=== PATIENT | female | born 1940 | race Caucasian/White ===

== ENCOUNTER 2016-10-14 07:51 | Inpatient (IN) | payer MEDICARE ==
[~2016-10-14] VITALS: Ht 157.5 cm; Wt 69.8 kg
[2016-10-14] VITALS (9 sets, daily range): BP systolic 137–214; BP diastolic 64–89; PULSE 49–73; RESP 16–20; TEMP 97.1–97.9; O2SAT 92–99
[~2016-10-14 07:51] MED LIST: AMLO2.5T PO; ASPI-99 PO; FISH100020 PO; FURO20 PO; LEVO50TA51 PO; LOSA50TA PO; METO25 PO; OMEP20TA PO
--- NOTE | 2016-10-14 08:30 | PD ---
HPI Chief Complaint: Abnormal blood work Time Seen by Provider: 08:12 Travel History International Travel<30 days: No Contact w/Intl Traveler<30days: No Traveled to known affect area: No History of Present Illness HPI 76yo F with PMH of hypothyroidism, HTN presents to the ED after receiving a phone call from PMD Dr. Rolle's office for sodium of 113. Pt had blood work drawn yesterday and has been having work up for dizziness as outpatient. Pt has been feeling dizzy with unstable gait and fell 4 days ago. Pt had MRI brain at [place] yesterday. States she has not been eating well and feels generalized fatigue. Denies any headache, fever, cough, chest pain, sob, n/v, abdominal pain, diarrhea, focal weakness or numbness. States urine has been having a strong smell. PFSH Past Medical History Anxiety: Yes Cancer: No Cardiovascular Problems: No High Cholesterol: Yes Diabetes: No Diminished Hearing: No Endocrine: Yes Gastrointestinal Disorders: Yes (GERD) Genitourinary: No Hepatitis: No Hiatal Hernia: No Hypertension: Yes Immune Disorder: No Medical other: No Musculoskeletal: No Neurologic: No Psychiatric: No Reproductive: No Respiratory: No Immunizations Current: No Thyroid Disease: Yes Menopausal: Yes Past Surgical History AICD: No Body Medical Devices: NONE Cardiac Surgery: No Ear Surgery: No Endocrine Surgery: No Eye Surgery: No Genitourinary Surgery: Yes (CYSTOSCOPIES FOR BLADDER STONE ) Joint Replacement: No Neurologic Surgery: No Oral Surgery: Yes (wisDom teeth) Pacemaker: No Thoracic Surgery: No Other Surgery: Yes Social History Alcohol Use: No Tobacco Use: No Substance Use: No Allergies-Medications (Allergen,Severity, Reaction): Coded Allergies: Iodine (Verified Allergy, Mild, Irritation, 10/14/16) TOPICAL CAUSES LOCAL IRRITATION Latex (Unverified Allergy, Mild, LOCAL IRRITATION, 10/14/16) Sulfa (Verified Allergy, Mild, Swelling, 10/14/16) Pravastatin (Verified Adverse Reaction, Severe, NAUSEA, 10/14/16) ALL STATINS SEVERE NAUSEA, DIARRHEA Reported Meds & Prescriptions Reported Meds & Active Scripts Active Reported Metformin (Metformin HCl) 500 Mg Tab 500 Mg PO DAILY With a meal Aspirin 81 Mg Chew 81 Mg CHEW DAILY Furosemide 20 Mg Tab 20 Mg PO DAILY Levothyroxine (Levothyroxine Sodium) 50 Mcg Tab 50 Mcg PO DAILY Losartan (Losartan Potassium) 50 Mg Tab 50 Mg PO BID Metoprolol Tartrate 25 Mg Tab 25 Mg PO BID [place]-3 Fish Oil/Vitamin (Fish Oil-Cholecalciferol) 1,000-1,000 Mg Cap 1 Cap PO DAILY Omeprazole 20 Mg Tab 20 Mg PO DAILY Amlodipine (Amlodipine Besylate) 2.5 Mg Tab 2.5 Mg PO BID Review of Systems Except as stated in HPI: all other systems reviewed are Neg Physical Exam Narrative GENERAL: 76yo F not in distress. SKIN: Warm and dry. HEAD: Atraumatic. Normocephalic. Old ecchymoses left face and periorbital region. EYES: Pupils equal and round. No scleral icterus. No injection or drainage. ENT: No nasal bleeding or discharge. Mucous membranes pink and moist. NECK: Trachea midline. No JVD. CARDIOVASCULAR: Regular rate and rhythm. No murmur appreciated. RESPIRATORY: No accessory muscle use. Clear to auscultation. Breath sounds equal bilaterally. GASTROINTESTINAL: Abdomen soft, non-tender, nondistended.No rebound tenderness or guarding. MUSCULOSKELETAL: No obvious deformities. No clubbing. No cyanosis. Trace lower ext edema. NEUROLOGICAL: Awake and alert. No obvious cranial nerve deficits. Motor grossly within normal limits. Normal speech. PSYCHIATRIC: Appropriate mood and affect; insight and judgment normal. Data Data Last Documented VS Vital Signs Date Time Temp Pulse Resp B/P Pulse Ox O2 Delivery O2 Flow Rate FiO2 10/14/16 09:26 97.9 49 17 144/64 96 Room Air Orders Complete Blood Count With Diff (10/14/16 08:25) Basic Metabolic Panel (Bmp) (10/14/16 08:25) Osmolality,Serum (10/14/16 08:25) Urinalysis - C+S If Indicated (10/14/16 08:25) Electrocardiogram (10/14/16 ) Thyroid Stimulating Hormone (10/14/16 08:25) Sodium Chlor 0.9% 1000 Ml Inj (Ns 1000 M (10/14/16 10:30) Osmolality, Urine (10/14/16 10:33) Specimen To Be Collected PRN (10/14/16 10:33) Sodium, Random Urine (10/14/16 10:33) Chloride, Random Urine (10/14/16 10:33) Admit Order (Ed Use Only) (10/14/16 10:36) Admit To Inpatient (10/14/16 ) Scd Bilateral/Knee High [email or web address].[email or web address] (10/14/16 10:35) Vital Signs (Adult) LUDWIG.Q4H (10/14/16 10:35) Licensed Funeral Director / Telemetry LUDWIG.Q8H (10/14/16 10:35) Inpatient Certification (10/14/16 ) Diet Heart Healthy (10/14/16 Lunch) Activity Bed Rest With Brp (10/14/16 10:35) Sodium (Na) (10/14/16 12:00) Labs Laboratory Tests Test 10/14/16 08:35 White Blood Count 12.8 TH/MM3 Red Blood Count 3.43 MIL/MM3 Hemoglobin 10.5 GM/DL Hematocrit 29.2 % Mean Corpuscular Volume 84.9 FL Mean Corpuscular Hemoglobin 30.5 PG Mean Corpuscular Hemoglobin 35.9 % Concent Red Cell Distribution Width 13.3 % Platelet Count 326 TH/MM3 Mean Platelet Volume 8.0 FL Neutrophils (%) (Auto) 75.1 % Lymphocytes (%) (Auto) 16.5 % Monocytes (%) (Auto) 6.8 % Eosinophils (%) (Auto) 1.3 % Basophils (%) (Auto) 0.3 % Neutrophils # (Auto) 9.7 TH/MM3 Lymphocytes # (Auto) 2.1 TH/MM3 Monocytes # (Auto) 0.9 TH/MM3 Eosinophils # (Auto) 0.2 TH/MM3 Basophils # (Auto) 0.0 TH/MM3 CBC Comment DIFF FINAL Differential Comment Sodium Level 110 MEQ/L Potassium Level 3.9 MEQ/L Chloride Level 74 MEQ/L Carbon Dioxide Level 23.9 MEQ/L Anion Gap 12 MEQ/L Blood Urea Nitrogen 8 MG/DL Creatinine 0.51 MG/DL Estimat Glomerular Filtration 117 ML/MIN Rate Random Glucose 109 MG/DL Serum Osmolality 228 MOSM/KG Calcium Level 8.1 MG/DL Thyroid Stimulating Hormone 2.790 uIU/ML 3rd Gen [facility] Medical Decision Making Medical Screen Exam Complete: Yes Emergency Medical Condition: Yes Interpretation(s) EKG: Sinus bradycardia at 56bpm. Normal axis. TWI III. No ST segment elevation or depression. Differential Diagnosis Hyponatremia vs. other electrolyte abnormality vs. hypothyroidism vs. UTI vs. arrhythmia vs. dehydration Narrative Course 76yo F with hyponatremia sent here from PMD's office for low sodium. Pt has been having URI symptoms and feeling dizzy. Repeat Na today is 110. TSH is normal. Serum osmolality is low at 228. Mild leukocytosis at 12.8. H/H low at 10.5/29.2. Pt given NS IVF. UA and urine osmolality still pending. Pt had MRI yesterday but I was not able to see results. Discussed with Dr. Buck and accepted. BP elevated but pt states she just took her morning BP meds so will continue to monitor. UA pending. Diagnosis Primary Impression: Hyponatremia Admitting Information Admitting Physician Requests: it Donna Addison DO Oct 14, 2016 08:30
[2016-10-14 09:23] LABS: AUTOMATED NEUTROPHIL # 9.7 TH/MM3 (1.8-7.7); BASOPHIL % 0.3 % (0.0-2.0); EOSINOPHIL # 0.2 TH/MM3 (0-0.4); EOSINOPHIL % 1.3 % (0.0-4.0); HEMATOCRIT 29.2 % (35.0-46.0); HEMO FLAGS DIFF FINAL; LYMPH % 16.5 % (9.0-44.0); LYMPHOCYTE # 2.1 TH/MM3 (1.0-4.8); MEAN CELL VOLUME 84.9 FL (80.0-100.0); MEAN CORPUSCULAR HEMOGLOBIN 30.5 PG (27.0-34.0); MEAN CORPUSCULAR HGB CONC 35.9 % (32.0-36.0); MONO % 6.8 % (0.0-8.0); NEUT % 75.1 % (16.0-70.0); PLATELET COUNT 326 TH/MM3 (150-450); RED BLOOD COUNT 3.43 MIL/MM3 (4.00-5.30); RED CELL DISTRIBUTION WIDTH 13.3 % (11.6-17.2); WHITE BLOOD COUNT 12.8 TH/MM3 (4.0-11.0)
[2016-10-14 10:04] LABS: BICARBONATE 23.9 MEQ/L (21.0-32.0)
[2016-10-14 10:05] LABS: POTASSIUM 3.9 MEQ/L (3.5-5.1)
[2016-10-14] MEDS ORDERED: SODIUM CHLOR 0.9% 1000 ML INJ 1,000 ML IV ONE (10:30)
--- NOTE | 2016-10-14 12:22 | HHI.HP ---
HPI Service [facility] Hospitalists Primary Care Physician Marco Rolle MD Admission Diagnosis Hyponatremia Chief Complaint: Dizziness Travel History International Travel<30 Days: No Contact w/Intl Traveler <30 Da: No Traveled to Known Affected Are: No History of Present Illness Mrs. Stevens is a pleasant 76 y/o female with HTN, hyperlipidemia, diabetes and hypothyroidism. Pt presented to the ED at [facility] on 10/14/16 with dizziness and hyponatremia. Two weeks ago pt started having a cough and congestion and she went to see her PCP the following week and was treated by her PCP with a Z-pack and cough medication with codeine. She reports that she had less congestion but still had some cough and congestion and post-nasal drip. She states that she is still having a lot of mucous production. No reported fever or chills with the sinus and congestion. Pt then she states that she started having dizziness and difficulty ambulating 6 days ago. She fell 5 days ago while bending over and lost her balance and has some bruising on the left side of her face. She denies any LOC. Pt had a very poor appetite last week and was not eating much. She has not had much urine output. She states that she has been taking Lasix 20mg daily for years. It is prescribed as an outpt on an as needed basis per the records. She took two Lasix tablets yesterday to try to urinate because she had not been urinating much. She states that the dizziness is worse when she stands up. Pt has had some diarrhea that began last week, having one loose BM per day. reports that the diarrhea was quite profuse. But she reports that she has not had any diarrhea for the last 1-2 days. Seemed that the diarrhea stopped after she completed the Z-pack. Pts reports that she almost fell again yesterday. They went to see Dr. Rolle yesterday and was sent for blood work and an MRI of the brain. The pts labs resulted with a Na+ level of 113 and was sent to the ER. Review of Systems Constitutional: COMPLAINS OF: Dizziness, DENIES: Fever, Chills Eyes: DENIES: Vision loss Ears, nose, mouth, throat: COMPLAINS OF: Nasal discharge, Running Nose Respiratory: COMPLAINS OF: Cough, Wheezing, DENIES: Shortness of breath Cardiovascular: DENIES: Chest pain, Lower Extremity Edema Gastrointestinal: COMPLAINS OF: Diarrhea, DENIES: Abdominal pain, Nausea, Vomiting Genitourinary: DENIES: Dysuria Musculoskeletal: DENIES: Back pain, Neck pain Integumentary: DENIES: Rash Hematologic/lymphatic: DENIES: Bruising Neurologic: COMPLAINS OF: Abnormal gait, Poor Balance, DENIES: Headache, Paresthesias, Seizures, Speech Problems Psychiatric: DENIES: Confusion Past Family Social History Past Medical History Hypertension Hyperlipidemia GERD Hypothyroidism Vitamin D deficiency Type 2 diabetes mellitus, HgA1C was 6.5 on 08-05-16 Chronic constipation Diverticulosis Pulmonary nodules, CT scan of the thorax on 09-29-08 that showed a small 6mm nodule in the left base laterally and two smaller nodules in the right mid lung. Her last CT thorax on 03-28-11 showed stable findings for 2 1/2 years and it was felt this was a benign process. Fatty liver Anxiety Osteopenia Carotid artery disease, carotid ultrasound on 08-22-14 showed around a 50% stenosis of the right ICA. A carotid ultrasound on 05-08-16 showed moderate (50-69%) stenosis of the right ICA and mild (<50%) stenosis of the left ICA. Past Surgical History Cystoscopy for nephrolithiasis Reported Medications Metformin 500 Mg PO DAILY Aspirin 81 Mg CHEW DAILY Furosemide 20 Mg PO DAILY PRN Levothyroxine 50 Mcg PO DAILY Losartan 50 Mg PO BID Metoprolol Tartrate 25 Mg PO BID [place]-3 Fish Oil/Vitamin1,000 Mg Cap 1 Cap PO DAILY Omeprazole 20 Mg PO DAILY Amlodipine 2.5 Mg PO BID Allergies: Coded Allergies: Iodine (Verified Allergy, Mild, Irritation, 10/14/16) TOPICAL CAUSES LOCAL IRRITATION Latex (Unverified Allergy, Mild, LOCAL IRRITATION, 10/14/16) Sulfa (Verified Allergy, Mild, Swelling, 10/14/16) Pravastatin (Verified Adverse Reaction, Severe, NAUSEA, 10/14/16) ALL STATINS SEVERE NAUSEA, DIARRHEA Family History Noncontributory Social History Denies any alcohol, tobacco or illicit drug use Pt lives locally with her Physical Exam Vital Signs Vital Signs Date Time Temp Pulse Resp B/P Pulse Ox O2 Delivery O2 Flow Rate FiO2 10/14/16 09:26 97.9 49 17 144/64 96 Room Air 10/14/16 07:52 97.6 65 17 99 Room Air Physical Exam GENERAL: This is a well-nourished, well-developed patient, in no apparent distress. HEENT: Atraumatic. Normocephalic. No temporal or scalp tenderness. No scleral icterus. Airway patent. NECK: Trachea midline, supple, nontender. CARDIO: Regular. RESP: Coarse breath sounds and wheeze bilaterally. ABD: +BS, soft, non-tender, nondistended. EXT: Extremities without clubbing, cyanosis, or edema. NEURO: Awake and alert. Motor and sensory grossly within normal limits. Normal speech. Laboratory Laboratory Tests Test 10/14/16 08:35 White Blood Count 12.8 Red Blood Count 3.43 Hemoglobin 10.5 Hematocrit 29.2 Mean Corpuscular Volume 84.9 Mean Corpuscular Hemoglobin 30.5 Mean Corpuscular Hemoglobin 35.9 Concent Red Cell Distribution Width 13.3 Platelet Count 326 Mean Platelet Volume 8.0 Neutrophils (%) (Auto) 75.1 Lymphocytes (%) (Auto) 16.5 Monocytes (%) (Auto) 6.8 Eosinophils (%) (Auto) 1.3 Basophils (%) (Auto) 0.3 Neutrophils # (Auto) 9.7 Lymphocytes # (Auto) 2.1 Monocytes # (Auto) 0.9 Eosinophils # (Auto) 0.2 Basophils # (Auto) 0.0 CBC Comment DIFF FINAL Differential Comment Sodium Level 110 Potassium Level 3.9 Chloride Level 74 Carbon Dioxide Level 23.9 Anion Gap 12 Blood Urea Nitrogen 8 Creatinine 0.51 Estimat Glomerular Filtration 117 Rate Random Glucose 109 Serum Osmolality 228 Calcium Level 8.1 Thyroid Stimulating Hormone 2.790 3rd Gen Result Diagram: 10/14/16 0835 10/14/16 0835 Septic Shock Reassessment Heart: Regular rate and rhythm Lungs: Course Skin: Warm Peripheral Pulses: Bounding Right Radial Bounding Left Radial Bounding Right Popliteal Bounding Left Popliteal Bounding Right Dorsalis Pedis Bounding Left Dorsalis Pedis Bounding Right Posterior Tibial Bounding Left Posterior Tibial Capillary Refill: <2 seconds Assessment and Plan Problem List: (1) Hyponatremia Status: Acute Plan: - Pt admitted with dizziness, falls, weakness and had recently been ill with a viral URI and had been on antibiotics which seemed to have caused some previous diarrhea, poor po intake and had also been taking Lasix daily and yesterday took two Lasix tablets because she was not urinating well at home. - Pts outpt labs revealed a Na+ of 113 and repeat labs today noted Na+ 110 - Pt was given NS x one bag in the ER - We will repeat serial Na+ levels and await repeat labs at 12:00 today to determine continued IVF, to avoid overcorrection - Encourage oral intake - PT evaluation tomorrow - Hold Lasix - Monitor labs and clinical status closely (2) HTN (hypertension) Status: Acute Plan: - Pts BP is quite high at admission in the ER. - She states that she took her morning meds this morning - Resume home meds - Clonidine PRN - Vasotec PRN (3) URI with cough and congestion Status: Acute Plan: - CXR - Duonebs Q6H and Q2H PRN - Claritin - [place] nasal spray (4) Diabetes Status: Chronic Plan: - Hold Metformin - NovoLog SSI (5) Hypothyroidism Status: Chronic Plan: - Cont. home meds (6) Hyperlipidemia Status: Acute Assessment and Plan Patient examined. Assessment and plan formulated with Flaca Esposito PA-C. I agree with the above. viral sinus and bronchitis. has been on abx. then alot of diarrhea and poor po intake plus pt using more diuretics. became dehydrated and severely hyponatremic. dizzy/off balance and falls with left periorbital ecchymosis. Na now 110. r/o siadh. slow correction of Na and monitor frequently. nebs and claritin. cxr pending. PT eval. oob with assist. Physician Certification 2 Midnight Certification Type: Admission for Inpatient Services Order for Inpatient Services The services are ordered in accordance with Medicare regulations or non- Medicare payer requirements, as applicable. In the case of services not specified as inpatient-only, they are appropriately provided as inpatient services in accordance with the 2-midnight benchmark. Estimated LOS (days): 3 3 days is the estimated time the patient will need to remain in the hospital, assuming treatment plan goals are met and no additional complications. Post-Hospital Plan: Not yet determined Problem Qualifiers (1) Diabetes: Flaca Esposito Oct 14, 2016 12:22 Warren Buck MD Oct 14, 2016 18:22
[2016-10-14] MEDS ORDERED: METO25TA3 PO (12:26)
[2016-10-14] MEDS ORDERED: LOSA50TA PO (12:26)
[2016-10-14] MEDS ORDERED: ASPI81CH CHEW (12:26)
[2016-10-14] MEDS ORDERED: OMEGCAP PO (12:26)
[2016-10-14] MEDS ORDERED: FURO20TA PO (12:26)
[2016-10-14] MEDS ORDERED: AMLO2.5T PO (12:26)
[2016-10-14] MEDS ORDERED: OMEP20TA PO (12:26)
[2016-10-14] MEDS ORDERED: LEVO50TA4 PO (12:26)
[2016-10-14] MEDS ORDERED: METF500T PO (12:38)
[2016-10-14] MEDS ORDERED: RESP: ALBUTEROL 2.5 MG/IPRATROPIUM 0.5 MG NEB (PRN) NEB (12:45)
[2016-10-14] MEDS ORDERED: ENALAPRILAT 1.25 MG/ML VIAL IV PUSH PRN (12:45)
[2016-10-14] MEDS ORDERED: SODIUM CHLORIDE 0.65% NASAL SPRAY 45 ML BTL EACH NARE PRN (12:45)
[2016-10-14] MEDS ORDERED: PILL SPLITTER OTHER PRN (13:15)
[2016-10-14] MEDS: LORATADINE 10 MG TAB PO SCH (13:24)
[2016-10-14] MEDS ORDERED: SODIUM CHLOR 0.9% 1000 ML INJ 1,000 ML IV SCH (14:00)
--- NOTE | 2016-10-14 14:17 | RADRPT ---
EXAM DATE/TIME: 10/14/2016 13:17 [facility] COMPARISON: No previous studies available for comparison. INDICATIONS : Cough. MEDICAL HISTORY : None. SURGICAL HISTORY : None. ENCOUNTER: Initial ACUITY: 1 day PAIN SCORE: 0/10 LOCATION: Bilateral chest FINDINGS: A single AP erect portable view of the chest was obtained and demonstrates coarse streaky interstitia l opacities in both lungs greatest at the lung bases. There is no focal consolidation or effusion. Th e heart size is at the upper limits of normal. Atherosclerotic changes are present in the aorta. The bony thorax is intact. There are multiple overlying electrocardiogram leads. CONCLUSION: Streaky, coarse interstitial opacity in both lungs. The chronicity of the findings is not known for certain but these have a more chronic appearance and likely represent scarring and/or fibrosis. Pulmonary edema is less likely. Ramon Quintanilla MD on October 14, 2016 at 14:14 Board Certified Radiologist. This report was verified electronically.
[2016-10-14] MEDS ORDERED: RESP: ALBUTEROL 2.5 MG/IPRATROPIUM 0.5 MG NEB (SCH) NEB (16:00)
[2016-10-14] MEDS: INSULIN ASPART SUPPLEMENTAL SCALE SQ SCH ×2 (16:00→21:14)
[2016-10-14] MEDS: LOSARTAN 50 MG TAB PO SCH (20:26)
[2016-10-14] MEDS: METOPROLOL TARTRATE 25 MG TAB PO SCH (20:26)
[2016-10-14] MEDS: amLODIPine BESYLATE 5 MG TAB PO SCH (20:28)
[2016-10-14] MEDS: RESP: ALBUTEROL 2.5 MG/IPRATROPIUM 0.5 MG NEB (SCH) NEB (20:35)
[2016-10-14] MEDS ORDERED: SODIUM CHLORIDE 1 GRAM TAB PO ONE (22:00)
[2016-10-14] MEDS ORDERED: 3% SALINE INJ 250 ML IV ONE (22:00)
[2016-10-15] VITALS (8 sets, daily range): BP systolic 148–173; BP diastolic 63–74; PULSE 61–85; RESP 16–20; TEMP 96.5–98; O2SAT 91–94
[2016-10-15 00:24] LABS: BACTERIA, URINE RARE /hpf; BLOOD, URINE NEG (NEG); GLUCOSE,URINE TRACE mg/dL (NEG); KETONE, URINE NEG (NEG); MUCUS URINE FEW /lpf (OCC); NITRITE,URINE NEG (NEG); PH, URINE 6.5 (5.0-8.5); SQUAMOUS EPITHELIAL CELL URINE <1 /hpf (0-5); URINE COLOR YELLOW (YELLW/STRAW)
[2016-10-15 00:27] LABS: COMMENT (UR) CULT NOT INDICATED; CULTURE IF INDICATED CULT NOT INDICATED
[2016-10-15] MEDS: LEVOTHYROXINE SODIUM 50 MCG TAB PO SCH (05:33)
[2016-10-15] MEDS: INSULIN ASPART SUPPLEMENTAL SCALE SQ SCH ×4 (05:34→21:37)
[2016-10-15] MEDS: RESP: ALBUTEROL 2.5 MG/IPRATROPIUM 0.5 MG NEB (SCH) NEB ×4 (07:32→19:41)
[2016-10-15] MEDS: METOPROLOL TARTRATE 25 MG TAB PO SCH ×2 (08:49→21:27)
[2016-10-15] MEDS: LOSARTAN 50 MG TAB PO SCH ×2 (08:49→21:26)
[2016-10-15] MEDS: PANTOPRAZOLE SOD 20 MG DELAYED RELEASE TAB PO SCH (08:49)
[2016-10-15] MEDS: SODIUM CHLORIDE 1 GRAM TAB PO SCH ×2 (08:49→21:28)
[2016-10-15] MEDS: ASPIRIN 81 MG CHEW TAB CHEW SCH (08:49)
[2016-10-15] MEDS: LORATADINE 10 MG TAB PO SCH (08:50)
[2016-10-15] MEDS: amLODIPine BESYLATE 5 MG TAB PO SCH ×2 (08:50→21:27)
--- NOTE | 2016-10-15 09:03 | HHI.PR ---
Subjective Remarks lying in bed. trying to eat. Objective Vitals heart reg lung course bs abd s/nt ext no edema Vital Signs Date Time Temp Pulse Resp B/P Pulse Ox O2 Delivery O2 Flow Rate FiO2 10/15/16 08:00 96.9 68 18 156/64 91 10/15/16 04:00 97.8 61 16 148/66 93 10/15/16 00:00 98.0 63 16 165/63 94 10/14/16 20:43 67 10/14/16 20:00 97.1 73 16 169/75 92 10/14/16 15:30 97.5 63 20 144/89 93 10/14/16 15:06 137/88 10/14/16 15:00 137/88 10/14/16 12:40 65 214/85 95 Room Air 10/14/16 09:26 97.9 49 17 144/64 96 Room Air 10/14/16 10/14/16 10/15/16 15:00 23:00 07:00 Intake Total 200 ml 410 ml Output Total 1000 ml Balance 200 ml -590 ml Intake Oral 200 ml 150 ml IV Total 260 ml Output Urine Total 1000 ml # Voids 1 # Bowel Movements 0 Result Diagram: 10/14/16 0835 10/15/16 0448 A/P Problem List: (1) Hyponatremia Status: Acute Plan: - Pt admitted with dizziness, falls, weakness and had recently been ill with a viral URI and had been on antibiotics which seemed to have caused some previous diarrhea, poor po intake and had also been taking Lasix daily and yesterday took two Lasix tablets because she was not urinating well at home. - Pts outpt labs revealed a Na+ of 113 and repeat labs today noted Na+ 110 gentle 3% saline. follow na level closely today in and out cath overnight. 1000ml urine retention regular diet. nebulizer rx for cough/bronchospasm PT eval dvt prophylaxis (2) HTN (hypertension) Status: Acute Plan: -elevated htn cont scheduled and prn control (3) URI with cough and congestion Status: Acute Plan: - CXR - Duonebs Q6H and Q2H PRN - Claritin - [place] nasal spray (4) Diabetes Status: Chronic Plan: - Hold Metformin - NovoLog SSI (5) Hypothyroidism Status: Chronic Plan: - Cont. home meds (6) Hyperlipidemia Status: Acute Problem Qualifiers (1) Diabetes: Warren Buck MD Oct 15, 2016 09:03
[2016-10-15 12:17] LABS: BICARBONATE 22.4 MEQ/L (21.0-32.0); POTASSIUM 3.1 MEQ/L (3.5-5.1)
[2016-10-15] MEDS ORDERED: POTASSIUM CHLORIDE 20 MEQ CONTROLLED RELEASE TAB PO ONE (12:30)
[2016-10-15] MEDS ORDERED: 3% SALINE INJ 250 ML IV ONE (13:00)
[2016-10-15] MEDS: cloNIDine HCL 0.1 MG TAB PO PRN (19:00)
[2016-10-15] MEDS ORDERED: POTASSIUM CHLORIDE 20 MEQ CONTROLLED RELEASE TAB PO SCH (21:00)
--- NOTE | 2016-10-15 23:11 | EKG ---
Date Performed: 10/14/2016 Time Performed: 10:57:11 PTAGE: 76 years EKG: SINUS BRADYCARDIA MINIMAL ST DEPRESSION ABNORMAL ECG PREVIOUS TRACING : 10/14/2016 10.56 DOCTOR: Kristopher Ulrich Interpretating Date/Time 10/15/2016 23:10:30
[2016-10-16] VITALS (12 sets, daily range): BP systolic 119–180; BP diastolic 60–81; PULSE 65–89; RESP 16–20; TEMP 95.6–97.8; O2SAT 95–98
[2016-10-16] MEDS: cloNIDine HCL 0.1 MG TAB PO PRN (03:35)
[2016-10-16] MEDS: LEVOTHYROXINE SODIUM 50 MCG TAB PO SCH (05:22)
[2016-10-16] MEDS: INSULIN ASPART SUPPLEMENTAL SCALE SQ SCH ×4 (05:24→21:40)
[2016-10-16 07:22] LABS: AUTOMATED NEUTROPHIL # 8.2 TH/MM3 (1.8-7.7); BASOPHIL % 0.4 % (0.0-2.0); EOSINOPHIL # 0.1 TH/MM3 (0-0.4); HEMO FLAGS DIFF FINAL; LYMPHOCYTE # 1.5 TH/MM3 (1.0-4.8); MEAN CORPUSCULAR HEMOGLOBIN 30.8 PG (27.0-34.0); MONO % 8.1 % (0.0-8.0); NEUT % 76.5 % (16.0-70.0); PLATELET COUNT 232 TH/MM3 (150-450); RED BLOOD COUNT 3.07 MIL/MM3 (4.00-5.30); RED CELL DISTRIBUTION WIDTH 13.8 % (11.6-17.2); WHITE BLOOD COUNT 10.7 TH/MM3 (4.0-11.0)
[2016-10-16 07:47] LABS: BICARBONATE 21.9 MEQ/L (21.0-32.0); POTASSIUM 4.5 MEQ/L (3.5-5.1)
[2016-10-16] MEDS: RESP: ALBUTEROL 2.5 MG/IPRATROPIUM 0.5 MG NEB (SCH) NEB ×4 (08:17→19:21)
[2016-10-16] MEDS: LOSARTAN 50 MG TAB PO SCH ×2 (09:05→21:39)
[2016-10-16] MEDS: PANTOPRAZOLE SOD 20 MG DELAYED RELEASE TAB PO SCH (09:05)
[2016-10-16] MEDS: ASPIRIN 81 MG CHEW TAB CHEW SCH (09:05)
[2016-10-16] MEDS: LORATADINE 10 MG TAB PO SCH (09:05)
[2016-10-16] MEDS: METOPROLOL TARTRATE 25 MG TAB PO SCH ×2 (09:06→21:39)
[2016-10-16] MEDS: amLODIPine BESYLATE 5 MG TAB PO SCH ×2 (09:06→21:39)
[2016-10-16] MEDS: SODIUM CHLORIDE 1 GRAM TAB PO SCH ×2 (09:17→21:39)
--- NOTE | 2016-10-16 10:35 | HHI.PR ---
Subjective Remarks rough night with cough/sob.."I thought I was going to " Objective Vitals heart reg lung course bs/some wheezing abd s/nt ext no edema Vital Signs Date Time Temp Pulse Resp B/P Pulse Ox O2 Delivery O2 Flow Rate FiO2 10/16/16 08:20 95 Nasal Cannula 1.00 10/16/16 07:30 96.7 67 20 169/81 10/16/16 04:00 97.1 65 16 154/76 98 10/16/16 03:30 176/74 10/16/16 00:07 97.7 74 18 119/64 97 10/15/16 21:37 92 Nasal Cannula 2.00 10/15/16 20:24 81 10/15/16 20:00 96.7 74 16 159/71 94 10/15/16 16:00 96.5 72 18 173/74 94 10/15/16 12:00 97.5 70 20 159/68 94 10/15/16 10/15/16 10/16/16 15:00 23:00 07:00 Intake Total 1000 ml 200 ml 150 ml Output Total 1000 ml 1200 ml Balance 1000 ml -800 ml -1050 ml Intake Oral 1000 ml 200 ml 150 ml Output Urine Total 1000 ml 1200 ml # Voids 1 # Bowel Movements 0 0 0 Result Diagram: 10/16/1662010/16/16620 A/P Problem List: (1) Hyponatremia Status: Acute Plan: - Pt admitted with dizziness, falls, weakness and had recently been ill with a viral URI and had been on antibiotics which seemed to have caused some previous diarrhea, poor po intake and had also been taking Lasix daily and yesterday took two Lasix tablets because she was not urinating well at home. - Pts outpt labs revealed a Na+ of 113 and repeat labs today noted Na+ 110 -appears to be siadh. slow improvement. -urine retention likely secondary to acute illness. -uri now bronchitis but r/o pna cont nebs. 24hr solumedrol. ct chest and decide on abx. recheck na later today PT dvt prophylaxis search for recent outpt mri brain result cont mccabe for now. (2) HTN (hypertension) Status: Acute Plan: -elevated htn cont scheduled and prn control (3) URI with cough and congestion Status: Acute Plan: - see above (4) Diabetes Status: Chronic Plan: - Hold Metformin - NovoLog SSI (5) Hypothyroidism Status: Chronic Plan: - Cont. home meds (6) Hyperlipidemia Status: Acute Problem Qualifiers (1) Diabetes: Warren Buck MD Oct 16, 2016 10:35
--- NOTE | 2016-10-16 13:34 | RADRPT ---
EXAM DATE/TIME: 10/16/2016 12:21 [facility] COMPARISON: CHEST SINGLE AP, October 14, 2016, 13:17. INDICATIONS : Evaluate for pneumonia,generalize weakness RADIATION DOSE: 3.31 CTDIvol (mGy) MEDICAL HISTORY : Hypertension. Thyroid disease SURGICAL HISTORY : None. ENCOUNTER: Initial ACUITY: 4 - 6 days PAIN SCALE: 0/10 LOCATION: chest TECHNIQUE: Volumetric scanning of the chest was performed. Using automated exposure control and adjustment of t he mA and/or kV according to patient size, radiation dose was kept as low as reasonably achievable to obtain optimal diagnostic quality images. FINDINGS: LUNGS: There is no pneumothorax. Consolidation is noted in both posterior lung bases with air bronchograms. There are patchy consolidative alveolar infiltrates in both upper lobes. No concerning pulmonary nodu le is visualized. PLEURAE: There are moderate sized bilateral pleural effusions. MEDIASTINUM: The heart and great vessels demonstrate no acute abnormality. There is no mediastinal or hilar lymph adenopathy. Tracheal calcifications are present. AXILLAE: Within normal limits. No lymphadenopathy. MUSCULOSKELETAL: Within normal limits for patient age. MISCELLANEOUS: The visualized upper abdominal organs demonstrate no acute abnormality. CONCLUSION: 1. Moderate-sized bilateral pleural effusions. 2. Patchy alveolar opacities in both lungs as well as more consolidative infiltrate in the posterior lung bases with air bronchograms. These findings are nonspecific could be infectious or secondary to underlying more chronic lung disease. Ramon Quintanilla MD on October 16, 2016 at 13:30 Board Certified Radiologist. This report was verified electronically.
[2016-10-16] MEDS: methylPREDNISolone SOD SUCC 40 MG/1 ML VIAL IV SCH ×2 (13:41→18:58)
[2016-10-16] MEDS: LEVOFLOXACIN 500 MG PREMIX INJ 100 ML IV SCH (15:40)
[2016-10-16] MEDS ORDERED: FUROSEMIDE 20 MG/2 ML VIAL IV PUSH ONE (15:45)
--- NOTE | 2016-10-16 17:38 | EC ---
Study Study Date:10/16/2016 STUDY CONCLUSIONS SUMMARY - Left ventricle: The cavity size was normal. Wall thickness was increased in a pattern of mild LVH. Systolic function was normal. The estimated ejection fraction was in the range of 55% to 60%. Wall motion was normal; there were no regional wall motion abnormalities. - Mitral valve: Mild to moderate regurgitation. - Left atrium: The atrium was moderately dilated. - Right atrium: The atrium was mildly to moderately dilated. - Tricuspid valve: Mild regurgitation. - Pulmonary arteries: PA peak pressure: 58mm Hg (S). - Pericardium, extracardiac: There was a left pleural effusion. If LV function is below 40, please consider prescribing an ACEI or ARB or document rationale for non-use. PROCEDURE DATA STUDY STATUS: Elective. Procedure: Transthoracic echocardiography. Image quality was good. Scanning was performed from the parasternal, apical, and subcostal acoustic windows. Study completion: The patient tolerated the procedure well. Transthoracic echocardiography. M-mode, complete 2D, complete spectral Doppler, and color Doppler. Patient status: Inpatient. CARDIAC ANATOMY LEFT VENTRICLE: The cavity size was normal. Wall thickness was increased in a pattern of mild LVH. Systolic function was normal. The estimated ejection fraction was in the range of 55% to 60%. Wall motion was normal; there were no regional wall motion abnormalities. AORTIC VALVE: Trileaflet; normal thickness leaflets. Doppler: Transvalvular velocity was within the normal range. There was no stenosis. No regurgitation. Peak gradient: 16mm Hg (S). AORTA: Aortic root: The aortic root was normal in size. MITRAL VALVE: Structurally normal valve. Doppler: Transvalvular velocity was within the normal range. There was no evidence for stenosis. Mild to moderate regurgitation. Mean gradient: 3mm Hg (D). Peak gradient: 12mm Hg (D). LEFT ATRIUM: The atrium was moderately dilated. RIGHT VENTRICLE: The cavity size was normal. Wall thickness was normal. PULMONIC VALVE: Doppler: Transvalvular velocity was within the normal range. There was no evidence for stenosis. No regurgitation. TRICUSPID VALVE: Structurally normal valve. Doppler: Transvalvular velocity was within the normal range. Mild regurgitation. PULMONARY ARTERY: The main pulmonary artery was normal-sized. Systolic pressure was within the normal range. RIGHT ATRIUM: The atrium was mildly to moderately dilated. PERICARDIUM: There was no pericardial effusion. SYSTEMIC VEINS: Inferior vena cava: The vessel was normal in size. Pleura: There was a left pleural effusion. BASIC MEASUREMENTS ADULT NORMAL Left ventricle LV internal dimension, ED, chordal level, *42.5 mm 43-52 PLAX LV internal dimension, ES, chordal level, 32.2 mm 23-38 PLAX Fractional shortening, chordal level, PLAX *24 % >29 LV posterior wall thickness, ED 7.65 mm IVS/LVPW ratio, ED *1.3 <1.3 Ventricular septum Septal thickness, ED 9.96 mm Aortic valve Leaflet separation 17 mm 15-26 Right ventricle RV internal dimension, ED, PLAX 19.7 mm 19-38 BASIC MEASUREMENTS ADULT NORMAL Aortic valve Leaflet separation 17 mm 15-26 Aorta Root diameter, ED 27 mm 20-37 DOPPLER MEASUREMENTS ADULT NORMAL Main pulmonary artery Pressure, S *58 mm Hg =30 Aortic valve Peak velocity, S 200 cm/s VTI, S 50.8 cm Peak gradient, S 16 mm Hg Mitral valve Peak E-wave velocity 126 cm/s Peak A-wave velocity 61 cm/s Mean velocity, D 76.8 cm/s Mean gradient, D 3 mm Hg Peak gradient, D 12 mm Hg Peak E/A ratio 2.1 Tricuspid valve Regurgitant peak velocity 328 cm/s Peak RV-RA gradient, S 43 mm Hg Maximal regurgitant velocity 328 cm/s Systemic veins Estimated CVP 10 mm Hg Right ventricle RV pressure, S *58 mm Hg <30 LEGEND: Mean values are shown as u=mean value. Asterisk (*) alvarez values outside specified normal range. Prepared and signed by Amilcar Barton [id number]
[2016-10-16] MEDS ORDERED: 3% SALINE INJ 250 ML IV ONE (18:45)
[2016-10-16] MEDS ORDERED: TOLVAPTAN 15 MG TAB PO ONE (20:00)
[2016-10-16] MEDS: TEMAZEPAM 15 MG CAP PO PRN (22:11)
[2016-10-17] VITALS (13 sets, daily range): BP systolic 129–173; BP diastolic 51–90; PULSE 67–102; RESP 16–20; TEMP 95.4–97.9; O2SAT 93–100
[2016-10-17] MEDS ORDERED: LORazepam 2 MG/ML VIAL IVS ONE (00:35)
[2016-10-17] MEDS: methylPREDNISolone SOD SUCC 40 MG/1 ML VIAL IV SCH ×5 (00:45→23:31)
[2016-10-17 04:58] LABS: APTT (PATIENT) 28.5 SEC (24.3-30.1); INTERNATIONAL NORMALIZED RATIO 1.2 RATIO; PROTHROMBIN TIME - PATIENT 13.6 SEC (9.8-11.6)
[2016-10-17 05:36] LABS: BICARBONATE 22.8 MEQ/L (21.0-32.0)
[2016-10-17] MEDS: LEVOTHYROXINE SODIUM 50 MCG TAB PO SCH (05:44)
[2016-10-17] MEDS: INSULIN ASPART SUPPLEMENTAL SCALE SQ SCH ×4 (05:57→21:29)
[2016-10-17] MEDS ORDERED: FUROSEMIDE 20 MG/2 ML VIAL IV PUSH ONE ×2 (07:30→09:00)
[2016-10-17] MEDS: RESP: ALBUTEROL 2.5 MG/IPRATROPIUM 0.5 MG NEB (SCH) NEB ×4 (07:50→19:55)
[2016-10-17] MEDS: PANTOPRAZOLE SOD 20 MG DELAYED RELEASE TAB PO SCH (08:55)
[2016-10-17] MEDS: LOSARTAN 50 MG TAB PO SCH ×2 (08:55→21:24)
[2016-10-17] MEDS: SODIUM CHLORIDE 1 GRAM TAB PO SCH ×2 (08:55→21:24)
[2016-10-17] MEDS: METOPROLOL TARTRATE 25 MG TAB PO SCH ×2 (08:55→21:24)
[2016-10-17] MEDS: ASPIRIN 81 MG CHEW TAB CHEW SCH (08:56)
[2016-10-17] MEDS: LORATADINE 10 MG TAB PO SCH (08:56)
[2016-10-17] MEDS: amLODIPine BESYLATE 5 MG TAB PO SCH ×2 (08:56→21:24)
[2016-10-17] MEDS: LORazepam 0.5 MG TAB PO PRN ×2 (09:01→21:23)
--- NOTE | 2016-10-17 09:05 | HHI.PR ---
Subjective Remarks still with sob/congestion. Objective Vitals heart reg lung diminished bases. upper airway rhonci/wheeze abd s/nt ext no edema mccabe Vital Signs Date Time Temp Pulse Resp B/P Pulse Ox O2 Delivery O2 Flow Rate FiO2 10/17/16 07:52 95 10/17/16 04:00 95.8 85 19 168/65 94 10/17/16 00:00 97.9 87 20 164/81 100 10/16/16 21:05 89 10/16/16 20:00 97.8 88 19 152/60 98 10/16/16 19:00 152/68 10/16/16 15:41 95.6 76 20 180/79 95 10/16/16 15:29 95 Nasal Cannula 2.00 10/16/16 11:30 96.9 72 20 157/68 98 10/16/16 10/16/16 10/17/16 15:00 23:00 07:00 Intake Total 360 ml 120 ml 120 ml Output Total 450 ml 1000 ml 2800 ml Balance -90 ml -880 ml -2680 ml Intake Oral 360 ml 120 ml 120 ml Output Urine Total 450 ml 1000 ml 2800 ml # Bowel Movements 0 0 0 Result Diagram: 10/16/16 0621 10/17/16 0815 A/P Problem List: (1) Hyponatremia Status: Acute Plan: - Pt admitted with dizziness, falls, weakness and had recently been ill with a viral URI then bronchitis and had been on antibiotics which seemed to have caused some previous diarrhea, poor po intake and had also been taking Lasix daily and she was not urinating well at home. - Pts outpt labs revealed a Na+ of 113 and repeat labs on admission noted Na+ 110 -appears to be siadh. slow improvement. -urine retention likely secondary to acute illness. -uri now with bilateral pneumonia and pleural effusion. pt hypoxic and some respiratory distress cont nebs/solumedrol/abx thoracentesis today dose iv lasix monitor na. currrently 130. cont mccabe for now. urine ret. PT daily wean o2 as tolerated dvt prophylaxis (2) Pneumonia, community acquired Status: Acute Plan: see above (3) Pleural effusion Status: Acute Plan: see above (4) HTN (hypertension) Status: Acute Plan: -elevated htn cont scheduled and prn control (5) Diabetes Status: Chronic Plan: - resume oha as tolerated - NovoLog SSI (6) Hypothyroidism Status: Chronic Plan: - Cont. home meds (7) Hyperlipidemia Status: Chronic Problem Qualifiers (1) Diabetes: Warren Buck MD Oct 17, 2016 09:05
[2016-10-17 12:49] LABS: INDIRECT BILIRUBIN 0.8 MG/DL (0.0-0.8)
[2016-10-17 12:49] LABS: TOTAL PROTEIN,PLEURAL FLUID 1.5 GM/DL
--- NOTE | 2016-10-17 13:00 | RADRPT ---
EXAM DATE/TIME: 10/17/2016 12:10 [facility] COMPARISON: CT THORAX W/O CONTRAST, October 16, 2016, 12:21. INDICATIONS : Eval lungs post thoracentesis. MEDICAL HISTORY : None. SURGICAL HISTORY : None. ENCOUNTER: Subsequent ACUITY: 4 - 6 days PAIN SCORE: 0/10 LOCATION: chest FINDINGS: The cardiac silhouette is enlarged in transverse diameter. There is left lower lobe atelectasis versu s pneumonia. There is patchy alveolar disease bilaterally compatible with edema or pneumonia. A smal l left sided effusion is present. There is no evidence of pneumothorax. CONCLUSION: 1. No evidence of pneumothorax following thoracentesis. Diallo Baez MD on October 17, 2016 at 12:57 Board Certified Radiologist. This report was verified electronically.
[2016-10-17 13:17] LABS: PLEURAL FLUID LYMPHS 10 %
[2016-10-17] MEDS: LEVOFLOXACIN 500 MG PREMIX INJ 100 ML IV SCH (13:51)
--- NOTE | 2016-10-17 15:47 | RADRPT ---
EXAM DATE/TIME: 10/17/2016 11:40 [facility] COMPARISON: No previous studies available for comparison. INDICATIONS : Right pleural effusion. MEDICAL HISTORY : Hypercholesterolemia. Hypertension. Gastroesophageal reflux disease. Thyroid disease. Bilateral catar acts. Gait problems. Anxiety. SURGICAL HISTORY : Cystoscopies for bladder stone. ENCOUNTER: Initial ACUITY: 1 day PAIN SCORE: 2/10 LOCATION: Right chest FLUID: Total volume of 475 cc of cloudy, yellow fluid was removed. Fluid was sent to lab for ordered studies. TECHNIQUE: 1. Ultrasound guidance for thoracentesis. 2. Thoracentesis. The risks, benefits, and alternatives to ultrasound guided thoracentesis were explained to the patien t in lay simple terms, including the risk of bleeding and infection. Written and verbal informed con sent was obtained. Appropriate area for thoracentesis was marked under ultrasound guidance with the patient in the uprig ht position. Overlying skin was prepped and draped in the usual sterile fashion and with local anest hetic, a dermatotomy was made with an 11 blade scalpel. A 6 Stateless thoracentesis catheter was placed in the pleural space and fluid was removed. Catheter was then removed and a sterile dressing applie d. There were no immediate complications. The patient tolerated the procedure well and the left the ultrasound suite in stable condition. Chest radiograph is to be obtained. CONCLUSION: Uncomplicated ultrasound guided right thoracentesis. Romel Kuhn MD FACR on October 17, 2016 at 15:46 Board Certified Radiologist. This report was verified electronically.
[2016-10-18] VITALS (8 sets, daily range): BP systolic 137–157; BP diastolic 54–70; PULSE 68–109; RESP 16–21; TEMP 96–98.1; O2SAT 93–100
[2016-10-18] MEDS: LEVOTHYROXINE SODIUM 50 MCG TAB PO SCH (06:43)
[2016-10-18] MEDS: methylPREDNISolone SOD SUCC 40 MG/1 ML VIAL IV SCH ×4 (06:43→23:37)
[2016-10-18] MEDS: INSULIN ASPART SUPPLEMENTAL SCALE SQ SCH ×4 (06:50→20:30)
[2016-10-18 07:00] LABS: BICARBONATE 22.4 MEQ/L (21.0-32.0); POTASSIUM 4.2 MEQ/L (3.5-5.1)
[2016-10-18] MEDS: RESP: ALBUTEROL 2.5 MG/IPRATROPIUM 0.5 MG NEB (SCH) NEB ×4 (08:10→19:48)
[2016-10-18] MEDS: LOSARTAN 50 MG TAB PO SCH ×2 (09:00→20:31)
[2016-10-18] MEDS: amLODIPine BESYLATE 5 MG TAB PO SCH ×2 (09:00→20:30)
[2016-10-18] MEDS: METOPROLOL TARTRATE 25 MG TAB PO SCH ×2 (09:00→20:31)
[2016-10-18] MEDS: ASPIRIN 81 MG CHEW TAB CHEW SCH (09:33)
[2016-10-18] MEDS: LORATADINE 10 MG TAB PO SCH (09:33)
[2016-10-18] MEDS: SODIUM CHLORIDE 1 GRAM TAB PO SCH ×2 (09:33→20:31)
[2016-10-18] MEDS: PANTOPRAZOLE SOD 20 MG DELAYED RELEASE TAB PO SCH (09:33)
--- NOTE | 2016-10-18 12:33 | HHI.PR ---
Subjective Remarks anxious. eating a little more. Objective Vitals heart reg lung less wheezing improved air entry abd s/nt ext no edema mccabe Vital Signs Date Time Temp Pulse Resp B/P Pulse Ox O2 Delivery O2 Flow Rate FiO2 10/18/16 10:23 68 10/18/16 08:00 97.7 73 18 146/61 93 10/18/16 04:00 96.8 72 16 137/70 94 10/18/16 00:30 97.4 78 16 157/54 97 10/17/16 20:04 91 10/17/16 20:00 95.4 100 16 153/65 98 10/17/16 19:55 98 Nasal Cannula 10/17/16 16:00 97.6 93 18 143/64 97 10/17/16 12:44 67 20 156/65 97 10/17/16 10/17/16 10/18/16 15:00 23:00 07:00 Intake Total 600 ml 300 ml Output Total 1300 ml 500 ml Balance -700 ml -200 ml Intake Oral 600 ml 300 ml Output Urine Total 1300 ml 500 ml # Bowel Movements 0 Result Diagram: 10/16/16 0621 10/18/16 0524 A/P Problem List: (1) Hyponatremia Status: Acute Plan: - Pt admitted with dizziness, falls, weakness and had recently been ill with a viral URI then bronchitis and had been on antibiotics which seemed to have caused some previous diarrhea, poor po intake and had also been taking Lasix daily and she was not urinating well at home. - Pts outpt labs revealed a Na+ of 113 and repeat labs on admission noted Na+ 110 -appears to be siadh. slow improvement. -urine retention likely secondary to acute illness. -uri now with bilateral pneumonia and pleural effusion. pt hypoxic and some respiratory distress -s/p right thoracentesis 10/17. 450cc. cont nebs/solumedrol/abx consider left thoracentesis if sx's monitor na. cont mccabe for now. urine ret. PT daily. increase ambulation. wean o2 as tolerated dvt prophylaxis (2) Pneumonia, community acquired Status: Acute Plan: see above (3) Pleural effusion Status: Acute Plan: see above (4) HTN (hypertension) Status: Acute Plan: -elevated htn cont scheduled and prn control (5) Diabetes Status: Chronic Plan: - resume oha as tolerated - NovoLog SSI (6) Hypothyroidism Status: Chronic Plan: - Cont. home meds (7) Hyperlipidemia Status: Chronic Problem Qualifiers (1) Diabetes: Warren Buck MD Oct 18, 2016 12:33
[2016-10-18] MEDS: LEVOFLOXACIN 500 MG PREMIX INJ 100 ML IV SCH (13:15)
[2016-10-18] MEDS: TEMAZEPAM 15 MG CAP PO PRN (20:30)
[2016-10-18] MEDS: LORazepam 0.5 MG TAB PO PRN (20:31)
[2016-10-19] VITALS (9 sets, daily range): BP systolic 119–149; BP diastolic 54–61; PULSE 72–91; RESP 16–18; TEMP 95.9–96.8; O2SAT 95–99
--- NOTE | 2016-10-19 05:05 | RADRPT ---
EXAM DATE/TIME: 10/19/2016 03:53 [facility] COMPARISON: US GUIDED THORACENTESIS RIGHT, October 17, 2016, 11:40. CHEST EXPIRATION ONLY, October 17, 2016, 1 2:10. CT THORAX W/O CONTRAST, October 16, 2016, 12:21. CHEST SINGLE AP, October 14, 2016, 13:17. INDICATIONS : Shortness of breath, possible pulmonary disease. MEDICAL HISTORY : Hypertension. SURGICAL HISTORY : Thoracentesis ENCOUNTER: Subsequent ACUITY: 3 days PAIN SCORE: 0/10 LOCATION: Bilateral chest FINDINGS: Mild consolidation and small seen at the left lung base. Patchy airspace opacities are seen of both u pper lobes, probably not significantly changed. No pneumothorax seen. No significant effusion seen on the right. Heart size stable, within normal limits. CONCLUSION: Patchy upper lobe consolidation persists without significant change. Mild consolidation and small eff usion of the left lung base also relatively stable. No significant recurrent effusion on the right. N o pneumothorax. Silverio Yates MD on October 19, 2016 at 5:01 Board Certified Radiologist. This report was verified electronically.
[2016-10-19] MEDS: LEVOTHYROXINE SODIUM 50 MCG TAB PO SCH (06:13)
[2016-10-19] MEDS: methylPREDNISolone SOD SUCC 40 MG/1 ML VIAL IV SCH (06:13)
[2016-10-19] MEDS: INSULIN ASPART SUPPLEMENTAL SCALE SQ SCH ×4 (06:14→20:30)
[2016-10-19] MEDS: RESP: ALBUTEROL 2.5 MG/IPRATROPIUM 0.5 MG NEB (SCH) NEB ×4 (07:39→19:55)
[2016-10-19 07:54] LABS: BICARBONATE 21.1 MEQ/L (21.0-32.0); POTASSIUM 4.3 MEQ/L (3.5-5.1)
--- NOTE | 2016-10-19 08:12 | HHI.PR ---
Subjective Remarks overall seems better. asking for laxative and mccabe removal Objective Vitals oriented anxious heart reg lung improved air entry no wheeze abd s/nt ext no edema mccabe Vital Signs Date Time Temp Pulse Resp B/P Pulse Ox O2 Delivery O2 Flow Rate FiO2 10/19/16 08:07 83 10/19/16 07:43 99 21 10/19/16 00:35 96.8 91 18 119/56 95 10/18/16 20:22 96.8 101 21 153/67 97 10/18/16 20:00 109 10/18/16 16:00 98.1 92 20 142/60 100 10/18/16 12:00 96.0 87 18 145/62 99 10/18/16 10:23 68 10/18/16 10/18/16 10/19/16 15:00 23:00 07:00 Intake Total 1205 ml Output Total 650 ml 475 ml Balance 555 ml -475 ml Intake Oral 1080 ml IV Total 125 ml Output Urine Total 650 ml 475 ml Result Diagram: 10/16/1621 10/19/16 0620 A/P Problem List: (1) Hyponatremia Status: Acute Plan: - Pt admitted with dizziness, falls, weakness and had recently been ill with a viral URI then bronchitis and had been on antibiotics which seemed to have caused some previous diarrhea, poor po intake and had also been taking Lasix daily and she was not urinating well at home. - Pts outpt labs revealed a Na+ of 113 and repeat labs on admission noted Na+ 110 -appears to be siadh. slow improvement. -urine retention likely secondary to acute illness. -uri now with bilateral pneumonia and pleural effusion. pt hypoxic and some respiratory distress -s/p right thoracentesis 10/17. 450cc. transudate. - echo 10/16. ef 55-60%. mild lvh. mod mr. pap 58 cont nebs/convert abx to po and taper steroid repeat cxr shows improvement of left effusion after lasix. monitor na. d/c mccabe and monitor for ongoing retention PT daily. increase ambulation. improved yesterday. wean o2 as tolerated dvt prophylaxis laxative. (2) Pneumonia, community acquired Status: Acute Plan: see above (3) Pleural effusion Status: Acute Plan: see above (4) HTN (hypertension) Status: Acute Plan: -elevated htn cont scheduled and prn control (5) Diabetes Status: Chronic Plan: - resume oha as tolerated - NovoLog SSI (6) Hypothyroidism Status: Chronic Plan: - Cont. home meds (7) Hyperlipidemia Status: Chronic Problem Qualifiers (1) Diabetes: Warren Buck MD Oct 19, 2016 08:12
[2016-10-19] MEDS ORDERED: LACTULOSE SYRUP 20 GM/30 ML CUP PO ONE (08:15)
[2016-10-19] MEDS: PANTOPRAZOLE SOD 20 MG DELAYED RELEASE TAB PO SCH (09:34)
[2016-10-19] MEDS: LEVOFLOXACIN 500 MG TAB PO SCH (09:34)
[2016-10-19] MEDS: ASPIRIN 81 MG CHEW TAB CHEW SCH (09:34)
[2016-10-19] MEDS: predniSONE 20 MG TAB PO SCH ×2 (09:34→20:29)
[2016-10-19] MEDS: SODIUM CHLORIDE 1 GRAM TAB PO SCH ×2 (09:34→20:29)
[2016-10-19] MEDS: LORATADINE 10 MG TAB PO SCH (09:34)
[2016-10-19] MEDS: amLODIPine BESYLATE 5 MG TAB PO SCH ×2 (09:35→20:29)
[2016-10-19] MEDS: LOSARTAN 50 MG TAB PO SCH ×2 (09:35→20:29)
[2016-10-19] MEDS: METOPROLOL TARTRATE 25 MG TAB PO SCH ×2 (09:35→20:28)
[2016-10-19] MEDS: LACTULOSE SYRUP 20 GM/30 ML CUP PO PRN (20:34)
[2016-10-19] MEDS: TEMAZEPAM 15 MG CAP PO PRN (22:16)
[2016-10-19] MEDS: LORazepam 0.5 MG TAB PO PRN (22:16)
[2016-10-20] VITALS (7 sets, daily range): BP systolic 133–167; BP diastolic 56–81; PULSE 69–91; RESP 16–18; TEMP 95.8–97; O2SAT 97–100
[2016-10-20] MEDS: INSULIN ASPART SUPPLEMENTAL SCALE SQ SCH ×4 (06:35→20:46)
[2016-10-20] MEDS: LEVOTHYROXINE SODIUM 50 MCG TAB PO SCH (06:36)
[2016-10-20 07:22] LABS: BICARBONATE 22.5 MEQ/L (21.0-32.0); POTASSIUM 3.7 MEQ/L (3.5-5.1)
[2016-10-20] MEDS: RESP: ALBUTEROL 2.5 MG/IPRATROPIUM 0.5 MG NEB (SCH) NEB ×4 (08:25→19:15)
[2016-10-20] MEDS: ASPIRIN 81 MG CHEW TAB CHEW SCH (09:12)
[2016-10-20] MEDS: SODIUM CHLORIDE 1 GRAM TAB PO SCH ×2 (09:12→20:37)
[2016-10-20] MEDS: METOPROLOL TARTRATE 25 MG TAB PO SCH ×2 (09:12→20:37)
[2016-10-20] MEDS: amLODIPine BESYLATE 5 MG TAB PO SCH ×2 (09:12→20:37)
[2016-10-20] MEDS: LORATADINE 10 MG TAB PO SCH (09:12)
[2016-10-20] MEDS: predniSONE 20 MG TAB PO SCH ×2 (09:12→20:37)
[2016-10-20] MEDS: PANTOPRAZOLE SOD 20 MG DELAYED RELEASE TAB PO SCH (09:12)
[2016-10-20] MEDS: LOSARTAN 50 MG TAB PO SCH ×2 (09:12→20:37)
[2016-10-20] MEDS: LEVOFLOXACIN 500 MG TAB PO SCH (09:12)
--- NOTE | 2016-10-20 09:29 | HHI.PR ---
Subjective Remarks Pt is anxious for discharge. She has not had a BM yet and feels like she needs to urinate now. Afebrile Pt is off supplemental O2 Objective Vitals Vital Signs Date Time Temp Pulse Resp B/P Pulse Ox O2 Delivery O2 Flow Rate FiO2 10/20/16 08:25 98 21 10/20/16 08:00 96.1 70 18 151/56 100 10/20/16 04:00 96.5 69 16 133/63 97 10/20/16 00:07 95.8 81 16 167/68 98 10/19/16 20:02 83 10/19/16 19:55 95 21 10/19/16 19:50 96.8 76 16 147/58 99 10/19/16 16:00 96.0 85 16 149/61 99 10/19/16 12:00 95.9 72 16 145/57 98 10/19/16 10/19/16 10/20/16 15:00 23:00 07:00 Intake Total 480 ml 60 ml Output Total 800 ml 200 ml 220 ml Balance -320 ml -200 ml -160 ml Intake Oral 480 ml 60 ml Output Urine Total 800 ml 200 ml 220 ml # Voids 1 # Bowel Movements 1 Result Diagram: 10/16/16 0621 10/20/16 0526 Other Results Laboratory Tests Test 10/19/16 10/20/16 06:20 05:26 Sodium Level 131 MEQ/L 133 MEQ/L Potassium Level 4.3 MEQ/L 3.7 MEQ/L Chloride Level 97 MEQ/L 99 MEQ/L Carbon Dioxide Level 21.1 MEQ/L 22.5 MEQ/L Anion Gap 13 MEQ/L 12 MEQ/L Blood Urea Nitrogen 19 MG/DL 20 MG/DL Creatinine 0.73 MG/DL 0.68 MG/DL Estimat Glomerular Filtration 77 ML/MIN 84 ML/MIN Rate Random Glucose 152 MG/DL 149 MG/DL Calcium Level 8.7 MG/DL 8.5 MG/DL Imaging Last Impressions Chest X-Ray 10/19/16 0600 Signed Impressions: Service Date/Time: Wednesday, October 19, 2016 03:53 - CONCLUSION: Patchy upper lobe consolidation persists without significant change. Mild consolidation and small effusion of the left lung base also relatively stable. No significant recurrent effusion on the right. No pneumothorax. Silverio Yates MD Thoracentesis Ultrasound 10/17/16 0000 Signed Impressions: Service Date/Time: Monday, October 17, 2016 11:40 - CONCLUSION: Uncomplicated ultrasound guided right thoracentesis. Romel Kuhn MD FACR Chest CT 10/16/16 0000 Signed Impressions: Service Date/Time: October 12:21 - CONCLUSION: 1. Moderate-sized bilateral pleural effusions. 2. Patchy alveolar opacities in both lungs as well as more consolidative infiltrate in the posterior lung bases with air bronchograms. These findings are nonspecific could be infectious or secondary to underlying more chronic lung disease. Ramon Quintanilla MD Objective Remarks General: NAD, AAOx3 Chest: Good air entry bilaterally Cardiac: Regular Abd: +BS, soft ND/NT Ext: No edema A/P Problem List: (1) Hyponatremia Status: Acute Plan: - Pt admitted with dizziness, falls, weakness and had recently been ill with a viral URI then bronchitis and had been on antibiotics which seemed to have caused some previous diarrhea, poor po intake and had also been taking Lasix daily and she was not urinating well at home. 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 Pt has had slow improvement in IVF and was given one dose of Tolvaptan on 10/16/16. Na+ 133 today - Pt has had some urine retention likely secondary to acute illness. Byrnes cath removed and pt for voiding trial today - Pt developed worsening URI symptoms with bilateral pneumonia and pleural effusion. Pt was hypoxic and had some respiratory distress - She underwent right thoracentesis 10/17 with removal of 450cc of transudative fluid. - 2D echo 10/16 --> Estimated EF 55-60%, mild LVH, moderate MR, PA peak pressure 58mmHg - Pt has had clinical improvement with nebs, Abx and steroids. - Levaquin converted to po on 10/19 - Pt currently on Prednisone 20mg po BID - Repeat CXR (10/19) with noted improvement of left effusion after Lasix. - PT daily. Increase ambulation. Pt plans for discharge to home. - Cont. Lactulose PRN. - DVT prophylaxis (2) Pneumonia, community acquired Status: Acute Plan: see above (3) Pleural effusion Status: Acute Plan: see above (4) HTN (hypertension) Status: Acute Plan: - Elevated HTN - Cont scheduled and prn control (5) Diabetes Status: Chronic Plan: - Resume OHA as tolerated - NovoLog SSI (6) Hypothyroidism Status: Chronic Plan: - Cont. home meds (7) Hyperlipidemia Status: Chronic Assessment and Plan Patient examined. Assessment and plan formulated with Flaca Esposito PA-C. I agree with the above. Problem Qualifiers (1) Diabetes: Flaca Esposito Oct 20, 2016 09:29 Teo Pan DO Oct 21, 2016 10:49
--- NOTE | 2016-10-20 09:30 | HHI.FF ---
Face to Face Verification Diagnosis: (1) Hyponatremia (2) URI with cough and congestion (3) Pneumonia, community acquired (4) Pleural effusion (5) Hyperlipidemia (6) Hypothyroidism (7) HTN (hypertension) (8) Diabetes Physical Therapy Order: Evaluate and Treat, Improve ambulation, Strength and gait training Home Health Nursing Order: Signs/symptoms of disease process Nursing assessment with vital signs I have seen patient Zuleyma Stevens on 10/20/16. My clinical findings support the need for the requested home health care services because: Deconditioned w/ increased weakness High risk of falls I certify that my clinical findings support that this patient is homebound because: Unsteady gait/balance Flaca Esposito Oct 20, 2016 09:30
[2016-10-20] MEDS: LACTULOSE SYRUP 20 GM/30 ML CUP PO PRN (16:13)
[2016-10-20] MEDS: LORazepam 0.5 MG TAB PO PRN (16:16)
[2016-10-21] VITALS: BP 159/59; PULSE 74; RESP 18; TEMP 96.9; O2SAT 96
[2016-10-21 04:00] VITALS: BP 146/67; PULSE 71; RESP 17; TEMP 98.2; O2SAT 98
[2016-10-21] MEDS: LEVOTHYROXINE SODIUM 50 MCG TAB PO SCH (05:22)
[2016-10-21] MEDS: INSULIN ASPART SUPPLEMENTAL SCALE SQ SCH (05:26)
[2016-10-21 08:00] VITALS: BP 170/89; PULSE 72; RESP 16; TEMP 96.4; O2SAT 95
[2016-10-21 08:12] VITALS: O2SAT 99
[2016-10-21] MEDS: RESP: ALBUTEROL 2.5 MG/IPRATROPIUM 0.5 MG NEB (SCH) NEB ×2 (08:12→11:16)
[2016-10-21] MEDS: predniSONE 20 MG TAB PO SCH (08:43)
[2016-10-21] MEDS: METOPROLOL TARTRATE 25 MG TAB PO SCH (08:43)
[2016-10-21] MEDS: LEVOFLOXACIN 500 MG TAB PO SCH (08:43)
[2016-10-21] MEDS: LORATADINE 10 MG TAB PO SCH (08:43)
[2016-10-21] MEDS: SODIUM CHLORIDE 1 GRAM TAB PO SCH (08:43)
[2016-10-21] MEDS: ASPIRIN 81 MG CHEW TAB CHEW SCH (08:43)
[2016-10-21] MEDS: LOSARTAN 50 MG TAB PO SCH (08:43)
[2016-10-21] MEDS: amLODIPine BESYLATE 5 MG TAB PO SCH (08:43)
[2016-10-21] MEDS: PANTOPRAZOLE SOD 20 MG DELAYED RELEASE TAB PO SCH (08:43)
[2016-10-21] MEDS ORDERED: PRED20 PO (08:59)
[2016-10-21] MEDS ORDERED: AMLO2.5T PO (08:59)
[2016-10-21] MEDS ORDERED: LEVA500T PO ×2 (08:59→09:10)
--- NOTE | 2016-10-21 09:02 | HHI.DCPOC ---
Discharge Care Plan Diagnosis: (1) Pleural effusion (2) Pneumonia, community acquired (3) Hyperlipidemia (4) Hypothyroidism (5) HTN (hypertension) (6) Hyponatremia (7) Diabetes Goals to Promote Your Health - Pt is to complete 2 more days of Levaquin - She will continue a Prednisone taper of 20mg twice daily x 1 day, then decrease to 20mg once daily x 3 days, then decrease to 10 mg once daily x 3 days , then stop - Pt is to be on a fluid restriction of no more than 2Liters of liquids per day - She is to have repeat labs drawn on Thursday10/27/16 with results to be sent to Dr. Marco Rolle - Pt is to followup with Dr. Rolle within 1 week. - Her Norvasc has been increased to 5mg daily. Directions to Meet Your Goals Take your medications as prescribed Follow your dietary instruction Follow activity as directed Keep your appointments as scheduled Take your immunizations and boosters as scheduled If your symptoms worsen call your PCP, if no PCP go to Urgent Care Center or Emergency Room Smoking is Dangerous to Your Health. Avoid second hand smoke Call the 24-hour hour crisis hotline for domestic abuse at Flaca Esposito Oct 21, 2016 09:02 Teo Pan DO Oct 21, 2016 10:49
--- NOTE | 2016-10-21 09:17 | HHI.DS ---
Discharge Summary Admission Date Oct 14, 2016 at 10:38 Discharge Date: Oct 21, 2016 Admitting Diagnosis Hyponatremia (1) Hyponatremia Diagnosis: Principal (2) Pneumonia, community acquired Diagnosis: Secondary (3) Pleural effusion Diagnosis: Secondary (4) HTN (hypertension) Diagnosis: Secondary (5) Diabetes Diagnosis: Secondary (6) Hypothyroidism Diagnosis: Secondary (7) Hyperlipidemia Diagnosis: Secondary Brief History Mrs. Stevens is a pleasant 76 y/o female with HTN, hyperlipidemia, diabetes and hypothyroidism. Pt presented to the [place] [facility] [place]16 with dizziness and hyponatremia. Two weeks ago pt started having a cough and congestion and she went to see her PCP the following week and was treated by her PCP with a Z-pack and cough medication with codeine. She reports that she had less congestion but still had some cough and congestion and post-nasal drip. She states that she is still having a lot of mucous production. No reported fever or chills with the sinus and congestion. Pt then she states that she started having dizziness and difficulty ambulating 6 days ago. She fell 5 days ago while bending over and lost her balance and has some bruising on the left side of her face. She denies any LOC. Pt had a very poor appetite last week and was not eating much. She has not had much urine output. She states that she has been taking Lasix 20mg daily for years. It is prescribed as an outpt on an as needed basis per the records. She took two Lasix tablets yesterday to try to urinate because she had not been urinating much. She states that the dizziness is worse when she stands up. Pt has had some diarrhea that began last week, having one loose BM per day. reports that the diarrhea was quite profuse. But she reports that she has not had any diarrhea for the last 1-2 days. Seemed that the diarrhea stopped after she completed the Z-pack. Pts reports that she almost fell again yesterday. They went to see Dr. Rolle yesterday and was sent for blood work and an MRI of the brain. The pts labs resulted with a Na+ level of 113 and was sent to the ER. CBC/BMP: 10/20/16 0526 Significant Findings Laboratory Tests Test 10/19/16 10/20/16 06:20 05:26 Sodium Level 131 MEQ/L 133 MEQ/L (136-145) (136-145) Chloride Level 97 MEQ/L (98-107) Blood Urea Nitrogen 19 MG/DL (7-18) 20 MG/DL (7-18) Estimat Glomerular Filtration 77 ML/MIN (>89) 84 ML/MIN (>89) Rate Random Glucose 152 MG/DL 149 MG/DL (74-106) (74-106) Imaging Last Impressions Chest X-Ray 10/19/16 0600 Signed Impressions: Service Date/Time: Wednesday, October 19, 2016 03:53 - CONCLUSION: Patchy upper lobe consolidation persists without significant change. Mild consolidation and small effusion of the left lung base also relatively stable. No significant recurrent effusion on the right. No pneumothorax. Silverio Yates MD Thoracentesis Ultrasound 10/17/16 0000 Signed Impressions: Service Date/Time: Monday, October 17, 2016 11:40 - CONCLUSION: Uncomplicated ultrasound guided right thoracentesis. Romel Kuhn MD FACR Chest CT 10/16/16 0000 Signed Impressions: Service Date/Time: October 12:21 - CONCLUSION: 1. Moderate-sized bilateral pleural effusions. 2. Patchy alveolar opacities in both lungs as well as more consolidative infiltrate in the posterior lung bases with air bronchograms. These findings are nonspecific could be infectious or secondary to underlying more chronic lung disease. Ramon Quintanilla MD PE at Discharge General: NAD, AAOx3 Chest: Good air entry bilaterally Cardiac: Regular Abd: +BS, soft ND/NT Ext: No edema Hospital Course Pt admitted with dizziness, falls, weakness and had recently been ill with a viral URI then bronchitis and had been on antibiotics which seemed to have caused some previous diarrhea, poor po intake and had also been taking Lasix daily and she was not urinating well at home. Pts outpt labs revealed a Na+ of 113 and repeat labs on admission noted Na+ 110. 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 Pt had slow improvement in IVF and was given one dose of Tolvaptan on 10/16/16. Na+ 133 on 10/20. Pt has had some urine retention likely secondary to acute illness and had required Byrnes catheter placement during this admission. The Byrnes cath was removed on 10/19. Pt developed worsening URI symptoms with bilateral pneumonia and pleural effusion during this admission. Pt was hypoxic and had some respiratory distress. She underwent right thoracentesis 10/17 with removal of 450cc of transudative fluid. 2D echo 10/16 -- > Estimated EF 55-60%, mild LVH, moderate MR, PA peak pressure 58mmHg. Pt has had clinical improvement with nebs, Abx and steroids. Levaquin converted to po on 10/19 and she will be discharged on Levaquin 500mg po daily x 2 more days for a total of 7 days. Pt was given IV Solu-Medrol and then converted to Prednisone 20mg po BID on 10/19. She will continue a Prednisone taper. Repeat CXR (10/19) with noted improvement of left effusion after Lasix. Pt required Lactulose to help with moving her bowels during this admission. Pt will need repeat labs for monitoring of her electrolytes. We will make arrangements for HHC/PT. Pt will need to followup with her PCP, Dr. Rolle, in 1 week. Pt Condition on Discharge: Stable Discharge Disposition: Disch w/ Home Health Serv Discharge Instructions DIET: Follow Instructions for: Diabetic Diet Activities you can perform: Regular-No Restrictions Follow up Referrals: PCP Follow-up - [address] aMrco Rolle New Medications: Levofloxacin (Levaquin) 500 Mg Tab 500 MG PO DAILY penumonia Days 2 TAB Prednisone (Prednisone) 20 Mg Tab 20 MG PO DIRECTED Take one tablet twice daily for one day, then decrease to once daily x 3 days, then decrease to half a tablet once daily x 3 days, then stop. pneumonia Days 7 TAB Changed Medications: Amlodipine (Amlodipine) 2.5 Mg Tab 5 MG PO BID Blood Pressure Management #62 Ref 0 TAB (Changed from: 2.5 MG; 30) Continued Medications: Aspirin (Aspirin) 81 Mg Chew 81 MG CHEW DAILY Ref 0 TAB Fish Oil-Cholecalciferol ([place]-3 Fish Oil/Vitamin) 1,000-1,000 Mg Cap 1 CAP PO DAILY Nutritional Supplement Ref 0 CAP Furosemide (Furosemide) 20 Mg Tab 20 MG PO DAILY #30 Ref 0 TAB Levothyroxine (Levothyroxine) 50 Mcg Tab 50 MCG PO DAILY Thyroid #30 Ref 0 TAB Losartan (Losartan) 50 Mg Tab 50 MG PO BID Blood Pressure Management #30 Ref 0 TAB Metformin (Metformin) 500 Mg Tab 500 MG PO DAILY With a meal Blood Sugar Management #30 Ref 0 TAB Metoprolol Tartrate (Metoprolol Tartrate) 25 Mg Tab 25 MG PO BID #30 Ref 0 TAB Omeprazole (Omeprazole) 20 Mg Tab 20 MG PO DAILY #30 Ref 0 TAB Additional Information Patient examined. Assessment and plan formulated with Flaca Esposito PA-C. I agree with the above. Flaca Esposito Oct 21, 2016 09:17 Teo Pan DO Oct 21, 2016 10:50
[2016-10-21] MEDS ORDERED: DIFL100T PO (09:43)
--- NOTE | 2016-10-21 10:05 | RADRPT ---
EXAM DATE/TIME: 10/21/2016 08:25 [place] COMPARISON: CHEST SINGLE AP, October 19, 2016, 3:53. CT THORAX W/O CONTRAST, October 16, 2016, 12:21. CHEST S LIZZIE AP, October 14, 2016, 13:17. INDICATIONS : Cough. Followup pulmonary infiltrates.. MEDICAL HISTORY : pneumonia, low sodium SURGICAL HISTORY : None. ENCOUNTER: Initial ACUITY: 1 week PAIN SCORE: 0/10 LOCATION: Bilateral chest FINDINGS: PA and lateral views of the chest demonstrate the lungs to be symmetrically aerated without evidence of mass, confluent infiltrate or effusion. Minimal streaky opacity remains in both lungs. There is n o effusion noted. The cardiomediastinal contours are unremarkable. Osseous structures are intact. CONCLUSION: 1. Minimal streaky residual opacity in the lungs with no consolidation. 2. Resolution of prior left effusion. Ramon Quintanilla MD on October 21, 2016 at 10:02 Board Certified Radiologist. This report was verified electronically.
== END 2016-10-21 11:42 | disposition home health service (06) | DRG 640 ==
LOC: NEPE 07:51 → NEDA 10:38 → HOCA 15:23
PROVIDERS: ADMIT Hospitalist; ATTEND Hospitalist
PROC: 0T9B70Z Drainage of Bladder with Drainage Device, Via Natural or Artificial Opening (ICD-10-PCS; 2016-10-15)
PROC: 0W9930Z Drainage of Right Pleural Cavity with Drainage Device, Percutaneous Approach (ICD-10-PCS; principal; 2016-10-17)
DX: E87.1 Hypo-osmolality and hyponatremia (principal); J18.9 Pneumonia, unspecified organism; J91.8 Pleural effusion in other conditions classified elsewhere; E11.9 Type 2 diabetes mellitus without complications; E22.2 Syndrome of inappropriate secretion of antidiuretic hormone; Z79.84 Long term (current) use of oral hypoglycemic drugs; I10 Essential (primary) hypertension; E03.9 Hypothyroidism, unspecified; E78.5 Hyperlipidemia, unspecified; E55.9 Vitamin D deficiency, unspecified; K21.9 Gastro-esophageal reflux disease without esophagitis; M85.80 Other specified disorders of bone density and structure, unspecified site; Z79.82 Long term (current) use of aspirin; R33.9 Retention of urine, unspecified; R09.02 Hypoxemia
CPT/HCPCS: 32555; 71010; 71020; 71250; 80048; 80076; 81001; 82436; 82945; 82948; 83615; 83930; 83935; 83986; 84157; 84295; 84300; 84443; 85025; 85610; 85730; 87070; 87205; 87449; 88112; 88305; 89051; 93005; 93306; 94640; C1729; J1815; J1940; J1956; J2060; J2920; J7030; J7512